=== PATIENT | female | born 1985 | race Two or more races ===

== ENCOUNTER 2019-05-27 09:50 | Emergency (ER) | payer MEDICAID ==
[~2019-05-27] VITALS: Ht 160 cm; Wt 70.3 kg
--- NOTE | 2019-05-27 10:02 | NUR ---
patient came in to the er c/o genital herpes, itching x 1 day. on room air, breathing evenly and unlabored. kept comfortable, will continue to monitor accordingly.
[2019-05-27 10:38] VITALS: BP 117/69
--- NOTE | 2019-05-27 10:38 | NUR ---
Patient discharged to home in stable condition. Written and verbal after care instructions given. Patient verbalizes understanding of instruction.
== END 2019-05-27 10:38 | disposition home or self-care (01) ==
LOC: ER 09:50
DX: A60.09 Herpesviral infection of other urogenital tract (principal)